=== PATIENT | female | born 1995 | race Caucasian/White ===

== ENCOUNTER 2016-07-27 09:25 | Emergency (ER) | payer MEDICAID, OTHER ==
--- NOTE | 2016-07-27 09:56 | Emergency Department Report ---
Chief Complaint: Chest Pain Stated Complaint: CHEST PAIN Time Seen by Provider: 07/27/16 09:51 - HPI History of Present Illness: 21-year-old female presents today with chest pain since yesterday that worsened today. Positive for pain radiating to the back. Positive for history of similar symptoms but has not been worked up. Tried Tylenol without relief. Denies fever, chills, cough or cold symptoms, shortness of breath, abdominal pain. - ROS Review of Systems: Per HPI - Exam Vital Signs: Vital Signs 07/27/16 09:45 Temperature 97.7 F Pulse Rate 64 Respiratory 20 Rate Blood Pressure 132/81 O2 Sat by Pulse 100 Oximetry Physical Exam: General: 21-year-old female in no acute distress. Well-developed, well- nourished. CV: Regular rate and rhythm. Lungs: Clear to auscultation bilaterally. Chest wall: Positive for tenderness to palpation of the anterior chest wall. MSE screening note: Focused history and physical exam performed. Due to findings the following was ordered: ED Disposition for MSE Condition: Stable
[2016-07-27 10:21] LABS: Basophils % (Auto) 0.4 % (0.0-1.8); Eosinophils % (Auto) 5.2 % (0.0-4.3); Hematocrit 37.7 % (30.3-42.9); Hemoglobin 11.9 gm/dl (10.1-14.3); Mean Corpuscular HGB Conc 32 % (30-34); Mean Corpuscular Hemoglobin 28 pg (28-32); Mean Corpuscular Volume 88 fl (79-97); Platelet Count 270 K/mm3 (140-440); Red Blood Count 4.31 M/mm3 (3.65-5.03); Red Cell Distribution Width 14.1 % (13.2-15.2); White Blood Count 9.8 K/mm3 (4.5-11.0)
--- NOTE | 2016-07-27 10:27 | XRay Report ---
CHEST 2 VIEWS INDICATION: Chest pain. COMPARISON: None similar. FINDINGS: PA and lateral chest radiographs demonstrate normal cardiomediastinal silhouette. Clear lungs. Mild thoracolumbar levoscoliosis apex about T12. CONCLUSION: No acute disease in the chest. Thank you for the opportunity to participate in this patient's care.
[2016-07-27 10:34] LABS: Alanine Aminotransferase 43 units/L (7-56); Albumin 4.4 g/dL (3.9-5); Albumin/Globulin Ratio 1.5 %; Alkaline Phosphatase 126 units/L (35-129); Anion Gap 20 mmol/L; Bilirubin,Total 0.7 mg/dL (0.1-1.2); Blood Urea Nitrogen 12 mg/dL (7-17); Calcium 9.1 mg/dL (8.4-10.2); Carbon Dioxide 24 mmol/L (22-30); Chloride 104.5 mmol/L (98-107); Creatine Kinase 115 units/L (30-135); Glucose 128 mg/dL (65-100); Lipase 15 units/L (13-60); Potassium 4.3 mmol/L (3.6-5.0); Sodium 144 mmol/L (137-145); Total Protein 7.4 g/dL (6.3-8.2)
[2016-07-27 13:31] LABS: Bilirubin,Urine NEG (Negative); Blood,Urine NEG (Negative); Ketones,Urine NEG (Negative); Leukocyte Esterase,Urine TR (Negative); Mucus,Urine FEW /HPF; Nitrite,Urine NEG (Negative); Protein,Urine <15 mg/dL mg/dL (Negative)
--- NOTE | 2016-07-27 13:38 | Emergency Department Report ---
ED General Adult HPI - General Chief complaint: Chest Pain Stated complaint: CHEST PAIN Time Seen by Provider: 07/27/16 09:51 Source: patient Mode of arrival: Ambulatory Limitations: No Limitations - History of Present Illness Initial comments: This is a 22-year-old female. She is previously unknown to me. She does not have a primary care doctor. She denies chronic medical conditions. She denies cocaine use. There is no family history of heart disease/thromboembolic disease that she is aware of. The patient presents to the ER with resolved chest pain. The chest pain started yesterday. It was epigastric, and radiated to the back. It has since resolved. There is no nausea, vomiting, diaphoresis. Patient does not take control tablets. She states it is not have any association with food. There is no leg pain. There is no leg swelling. No recent trips. No recent periods of immobility. -: Gradual Location: chest Severity scale (0 -10): 0 Quality: aching Consistency: now resolved Improves with: none Worsens with: none Associated Symptoms: denies: confusion, cough, diaphoresis, fever/chills, headaches, loss of appetite, malaise, nausea/vomiting, rash, seizure, shortness of breath, syncope, weakness - Related Data Previous Rx's Medication Instructions Recorded Last Taken Type Hydrocodone Bit/Acetaminophen 1 - 2 each PO Q4-6H PRN #15 tablet 06/13/13 Unknown Rx [Lortab 5-500 Tablet] Doxycycline [Vibramycin CAP] 100 mg PO Q12HR #14 capsule 01/31/15 Unknown Rx Ibuprofen [Motrin 800 MG tab] 800 mg PO TID PRN #20 tablet 01/31/15 Unknown Rx Methylergonovine [Methergine] 0.2 mg PO Q4H #6 tablet 01/31/15 Unknown Rx Allergies Allergy/AdvReac Type Severity Reaction Status Date / Time No Known Allergies Allergy Verified 06/12/13 15:17 ED Review of Systems ROS: Stated complaint: CHEST PAIN Other details as noted in HPI Constitutional: denies: fever, malaise, weakness ENT: denies: epistaxis, congestion Respiratory: see HPI. denies: shortness of breath, SOB with exertion, SOB at rest Cardiovascular: chest pain Gastrointestinal: abdominal pain. denies: nausea, vomiting, diarrhea, constipation, hematemesis, melena Genitourinary: denies: urgency, dysuria Musculoskeletal: back pain Skin: denies: rash, lesions Neurological: denies: headache, weakness Psychiatric: denies: anxiety ED Past Medical Hx - Past Medical History Previous Medical History?: Yes Hx Hypertension: No Hx Congestive Heart Failure: No Hx Diabetes: No Hx Deep Vein Thrombosis: No Hx Renal Disease: No Hx Sickle Cell Disease: No Hx Seizures: No Hx Asthma: No Hx COPD: No Hx HIV: No Additional medical history: Vaginal delivery x 3 - Surgical History Past Surgical History?: No - Social History Smoking Status: Current Every Day Smoker Substance Use Type: Non Opiate Pain - Medications Home Medications: Home Medications Medication Instructions Recorded Confirmed Last Taken Type Hydrocodone Bit/Acetaminophen 1 - 2 each PO Q4-6H PRN #15 tablet 06/13/13 Unknown Rx [Lortab 5-500 Tablet] Doxycycline [Vibramycin CAP] 100 mg PO Q12HR #14 capsule 01/31/15 Unknown Rx Ibuprofen [Motrin 800 MG tab] 800 mg PO TID PRN #20 tablet 01/31/15 Unknown Rx Methylergonovine [Methergine] 0.2 mg PO Q4H #6 tablet 01/31/15 Unknown Rx ED Physical Exam - General Limitations: No Limitations General appearance: alert, in no apparent distress - Head Head exam: Present: atraumatic, normocephalic - Eye Eye exam: Present: normal appearance, PERRL, EOMI. Absent: nystagmus - ENT ENT exam: Present: normal exam, normal orophraynx, mucous membranes moist, normal external ear exam - Neck Neck exam: Present: normal inspection, full ROM. Absent: tenderness, meningismus - Respiratory Respiratory exam: Present: normal lung sounds bilaterally, other (the bilateral chest exam is unremarkable. There is no breast tenderness. Given the breast exam, I am escorted by nurse Alvarez Dunlap). Absent: respiratory distress, wheezes, rales, rhonchi, stridor, chest wall tenderness - Cardiovascular Cardiovascular Exam: Present: regular rate, normal rhythm, normal heart sounds. Absent: bradycardia, tachycardia, irregular rhythm, systolic murmur, diastolic murmur, rubs, gallop - GI/Abdominal GI/Abdominal exam: Present: soft, normal bowel sounds. Absent: distended, tenderness, guarding, rebound, rigid, pulsatile mass - Extremities Exam Extremities exam: Present: normal inspection, full ROM, normal capillary refill. Absent: tenderness, pedal edema, joint swelling, calf tenderness - Back Exam Back exam: Present: normal inspection, full ROM. Absent: tenderness, CVA tenderness (R), CVA tenderness (L), muscle spasm, paraspinal tenderness, vertebral tenderness - Neurological Exam Neurological exam: Present: alert, oriented X3, normal gait, other (Extraocular movements intact. Tongue midline. No facial droop. Facial sensation intact to light touch in the V1, V2, V3 distribution bilaterally. 5 and 5 strength in 4 extremities.. Sensation is intact to light touch in 4 extremities.). Absent : motor sensory deficit - Psychiatric Psychiatric exam: Present: normal affect, normal mood. Absent: depressed, agitated, anxious, flat affect, suicidal ideation - Skin Skin exam: Present: warm, dry, intact, normal color. Absent: rash ED Course Vital Signs 07/27/16 07/27/16 09:45 12:54 Temperature 97.7 F Pulse Rate 64 89 Respiratory 20 18 Rate Blood Pressure 132/81 Blood Pressure 123/69 [Right] O2 Sat by Pulse 100 97 Oximetry - Reevaluation(s) Reevaluation #1: 07/27/16 14:32 differential diagnosis: Costochondritis, pneumonia, GERD, acute coronary syndrome, atypical chest pain Assessment and plan: 21-year-old female with atypical chest pain. No pulmonary embolus or DVT risk factors, low risk by well's criteria, perc negative. EKG essentially unremarkable with the exception of incomplete right bundle branch block, low risk by heart score, low risk by KIANA score, patient reports that she is pain-free at this time. Her physical examination is otherwise unremarkable. I don't believe she requires admission to the hospital for further cardiac evaluation. She will be discharged with instructions to follow with outpatient primary care and cardiology for her incidentally abnormal EKG. Return precautions are extensively reviewed. Reevaluation #2: 07/27/16 14:34 Patient has equal pulses in 4 extremities. X-ray of the mediastinum is unremarkable. Therefore, I think aortic disease is very unlikely. ED Medical Decision Making - Lab Data Result diagrams: 07/27/16 10:02 07/27/16 10:02 Vital Signs 07/27/16 07/27/16 09:45 12:54 Temperature 97.7 F Pulse Rate 64 89 Respiratory 20 18 Rate Blood Pressure 132/81 Blood Pressure 123/69 [Right] O2 Sat by Pulse 100 97 Oximetry Lab Results 07/27/16 07/27/16 07/27/16 Range/Units 10:02 10:02 12:38 WBC 9.8 (4.5-11.0) K/mm3 RBC 4.31 (3.65-5.03) M/mm3 Hgb 11.9 (10.1-14.3) gm/dl Hct 37.7 (30.3-42.9) % MCV 88 (79-97) fl MCH 28 (28-32) pg MCHC 32 (30-34) % RDW 14.1 (13.2-15.2) % Plt Count 270 (140-440) K/mm3 Lymph % (Auto) 18.9 (13.4-35.0) % Frederick % (Auto) 6.5 (0.0-7.3) % Eos % (Auto) 5.2 H (0.0-4.3) % Baso % (Auto) 0.4 (0.0-1.8) % Lymph # 1.8 (1.2-5.4) K/mm3 Frederick # 0.6 (0.0-0.8) K/mm3 Eos # 0.5 H (0.0-0.4) K/mm3 Baso # 0.0 (0.0-0.1) K/mm3 Seg Neutrophils % 69.0 (40.0-70.0) % Seg Neutrophils # 6.7 (1.8-7.7) K/mm3 Sodium 144 (137-145) mmol/L Potassium 4.3 (3.6-5.0) mmol/L Chloride 104.5 (98-107) mmol/L Carbon Dioxide 24 (22-30) mmol/L Anion Gap 20 mmol/L BUN 12 (7-17) mg/dL Creatinine 0.5 L (0.7-1.2) mg/dL Estimated GFR > 60 ml/min BUN/Creatinine Ratio 24.00 % Glucose 128 H (65-100) mg/dL Calcium 9.1 (8.4-10.2) mg/dL Total Bilirubin 0.7 (0.1-1.2) mg/dL AST 74 H (5-40) units/L ALT 43 (7-56) units/L Alkaline Phosphatase 126 (35-129) units/L Total Creatine Kinase 115 (30-135) units/L CK-MB (CK-2) 4.0 (0.0-4.0) ng/mL CK-MB (CK-2) Rel Index 3.4 (0-4) Troponin T < 0.010 < 0.010 (0.00-0.029) ng/mL Total Protein 7.4 (6.3-8.2) g/dL Albumin 4.4 (3.9-5) g/dL Albumin/Globulin Ratio 1.5 % Lipase 15 (13-60) units/L Urine Color (Yellow) Urine Turbidity (Clear) Urine pH (5.0-7.0) Ur Specific [place] (1.003-1.030) Urine Protein (Negative) mg/dL Urine Glucose (UA) (Negative) mg/dL Urine Ketones (Negative) mg/dL Urine Blood (Negative) Urine Nitrite (Negative) Urine Bilirubin (Negative) Urine Urobilinogen (<2.0) mg/dL Ur Leukocyte Esterase (Negative) Urine WBC (Auto) (0.0-6.0) /HPF Urine RBC (Auto) (0.0-6.0) /HPF U Epithel Cells (Auto) (0-13.0) /HPF Urine Mucus /HPF Urine HCG, Qual (Negative) 07/27/16 07/27/16 Range/Units 13:16 13:30 WBC (4.5-11.0) K/mm3 RBC (3.65-5.03) M/mm3 Hgb (10.1-14.3) gm/dl Hct (30.3-42.9) % MCV (79-97) fl MCH (28-32) pg MCHC (30-34) % RDW (13.2-15.2) % Plt Count (140-440) K/mm3 Lymph % (Auto) (13.4-35.0) % Frederick % (Auto) (0.0-7.3) % Eos % (Auto) (0.0-4.3) % Baso % (Auto) (0.0-1.8) % Lymph # (1.2-5.4) K/mm3 Frederick # (0.0-0.8) K/mm3 Eos # (0.0-0.4) K/mm3 Baso # (0.0-0.1) K/mm3 Seg Neutrophils % (40.0-70.0) % Seg Neutrophils # (1.8-7.7) K/mm3 Sodium (137-145) mmol/L Potassium (3.6-5.0) mmol/L Chloride (98-107) mmol/L Carbon Dioxide (22-30) mmol/L Anion Gap mmol/L BUN (7-17) mg/dL Creatinine (0.7-1.2) mg/dL Estimated GFR ml/min BUN/Creatinine Ratio % Glucose (65-100) mg/dL Calcium (8.4-10.2) mg/dL Total Bilirubin (0.1-1.2) mg/dL AST (5-40) units/L ALT (7-56) units/L Alkaline Phosphatase (35-129) units/L Total Creatine Kinase (30-135) units/L CK-MB (CK-2) (0.0-4.0) ng/mL CK-MB (CK-2) Rel Index (0-4) Troponin T (0.00-0.029) ng/mL Total Protein (6.3-8.2) g/dL Albumin (3.9-5) g/dL Albumin/Globulin Ratio % Lipase (13-60) units/L Urine Color Yellow (Yellow) Urine Turbidity Slightly-cloudy (Clear) Urine pH 8.0 H (5.0-7.0) Ur Specific [place] 1.019 (1.003-1.030) Urine Protein <15 mg/dl (Negative) mg/dL Urine Glucose (UA) Neg (Negative) mg/dL Urine Ketones Neg (Negative) mg/dL Urine Blood Neg (Negative) Urine Nitrite Neg (Negative) Urine Bilirubin Neg (Negative) Urine Urobilinogen 2.0 (<2.0) mg/dL Ur Leukocyte Esterase Tr (Negative) Urine WBC (Auto) 2.0 (0.0-6.0) /HPF Urine RBC (Auto) 2.0 (0.0-6.0) /HPF U Epithel Cells (Auto) 16.0 H (0-13.0) /HPF Urine Mucus Few /HPF Urine HCG, Qual Negative (Negative) - EKG Data EKG shows normal: sinus rhythm, axis Rate: normal - EKG Data When compared to previous EKG there are: previous EKG unavailable 07/27/16 14:34 Normal sinus, 65 bpm, normal intervals, normal axis, incomplete right bundle branch block, abnormal EKG, not morphologically consistent with STEMI, there is no prior EKG available for comparison. - Radiology Data Radiology results: report reviewed, image reviewed X-ray of the chest negative for acute disease. Critical care attestation.: If time is entered above; I have spent that time in minutes in the direct care of this critically ill patient, excluding procedure time. ED Disposition Clinical Impression: Chest pain Disposition: DISCHARGED TO HOME OR SELFCARE Is pt being admited?: No Does the pt Need Aspirin: No Condition: Good Instructions: Chest Pain (ED) Additional Instructions: Laboratory studies were unremarkable. Chest x-ray is unremarkable. Symptoms very unlikely to be dangerous or life-threatening. EKG demonstrated nonspecific abnormality. This may be a normal variant. However, it should be followed up by either primary care or cardiology within the next week. Dr. Vic Waller is a local primary care doctor. Drs. Hill and Neelima are local retail product demo specialist. Avoid consumption of having spicy food. Return to the ER right away with new pain, worsened pain, migration of pain, fevers or chills, intractable nausea or vomiting, inability to tolerate liquid feeds. Referrals: PRIMARY CARE, [Primary Care Provider] - 3-5 Days VIC WALLER MD [Staff Physician] - 3-5 Days CAMRON PHILIP MD [Staff Physician] - 3-5 Days LAURA KENNEDY MD [Staff Physician] - 3-5 Days
[2016-07-27] MEDS ORDERED: PEPCID PO ONE (14:27)
[2016-07-27 14:54] VITALS: BP 120/68
== END 2016-07-27 14:44 | disposition home or self-care (01) ==
LOC: ED 09:25
DX: R07.9 Chest pain, unspecified (principal); F17.200 Nicotine dependence, unspecified, uncomplicated
CPT/HCPCS: 36415; 71020; 80048; 80053; 81001; 81025; 82550; 82553; 83690; 84484; 85025; 93005; 93010